=== PATIENT | male | born 1960 | race Caucasian/White ===

== ENCOUNTER 2017-12-20 10:58 | Emergency (ER) | payer MEDICAID, OTHER | END 2017-12-20 15:10 | disposition left against medical advice (07) | LOC: E/R 10:58 | DX: F10.929 Alcohol use, unspecified with intoxication, unspecified (principal); R40.2132 Coma scale, eyes open, to sound, at arrival to emergency department; R40.2242 Coma scale, best verbal response, confused conversation, at arrival to emergency department; R40.2352 Coma scale, best motor response, localizes pain, at arrival to emergency department; R93.0 Abnormal findings on diagnostic imaging of skull and head, not elsewhere classified | CPT/HCPCS: 70450; 99284-25 ==